=== PATIENT | female | born 2000 | race Caucasian/White ===

== ENCOUNTER 2019-11-20 23:03 | Emergency (ER) | payer OTHER ==
[2019-11-20] MEDS ORDERED: LORAZEPAM INJ 2 MG/1 ML VIAL IV ONE (23:15)
[2019-11-20] MEDS: NORMAL SALINE 1000 ML 1,000 ML IV PRN (23:29)
[2019-11-20 23:32] LABS: ABSOLUTE EOSINOPHILS # (AUTO) 0.3 10^3/uL (0.0-0.6); ABSOLUTE LYMPHOCYTES (AUTO) 4.1 10^3/uL (0.5-4.7); ABSOLUTE MONOCYTES (AUTO) 0.9 10^3/uL (0.1-1.4); ABSOLUTE NEUT (AUTO) 5.9 10^3/uL (1.7-8.2); BASOPHILS % (AUTO) 0.3 % (0-2); EOSINOPHILS % (AUTO) 2.7 % (0-6); HEMATOCRIT 46.8 % (36.0-47.0); HEMOGLOBIN 15.6 g/dL (12.0-15.5); LYMPHOCYTES % (AUTO) 36.2 % (13-45); MEAN CORPUSCULAR HEMOGLOBIN 30.7 pg (27.0-33.4); MEAN CORPUSCULAR HGB CONC 33.4 g/dL (32.0-36.0); MEAN CORPUSCULAR VOLUME 92 fl (80-97); MONOCYTES % (AUTO) 8.4 % (3-13); PLATELET COUNT 339 10^3/uL (150-450); RED BLOOD COUNT 5.09 10^6/uL (3.72-5.28); RED CELL DISTRIBUTION WIDTH 13.4 % (11.5-14.0); SEGMENTED NEUTROPHILS % (AUTO) 52.4 % (42-78); TOTAL CELLS COUNTED % (AUTO) 100 %; WHITE BLOOD COUNT 11.2 10^3/uL (4.0-10.5)
[2019-11-20 23:42] LABS: ACETAMINOPHEN < 10 ug/mL (10-30); ALBUMIN 4.8 g/dL (3.5-5.0); ALCOHOL 137 mg/dL (NONE DETECTED); ALKALINE PHOSPHATASE 66 U/L (38-126); ANION GAP 13 (5-19); ASPARTATE AMINO TRANSFERASE 34 U/L (14-36); BILIRUBIN,TOTAL 0.5 mg/dL (0.2-1.3); BLOOD UREA NITROGEN 11 mg/dL (7-20); CARBON DIOXIDE 21 mmol/L (22-30); CHLORIDE 107 mmol/L (98-107); GLUCOSE 115 mg/dL (75-110); POTASSIUM 3.3 mmol/L (3.6-5.0); SALICYLATE < 1.0 mg/dL (2.0-20.0); TOTAL PROTEIN 7.7 g/dL (6.3-8.2)
[2019-11-21] MEDS ORDERED: DIAZEPAM INJ 10 MG/2 ML DISP.SYRIN IV ONE ×5 (00:20→01:57)
--- NOTE | 2019-11-21 00:21 | ER Document Report ---
Entered by RIZWAN SNOW SCRIBE 11/20/19 6258 Acting as scribe for:JOSE ALBERTO HERNANDEZ IV, MD ED General - General Chief Complaint: Overdose Stated Complaint: ALTERED MENTAL STATUS Time Seen by Provider: 11/20/19 23:10 Mode of Arrival: Medic Information source: Emergency Med Personnel Notes: This 20 year old female patient brought in by EMS presents to the ED today with complaints of possible overdose and altered mental status that occurred just prior to arrival. Per ED nurse, the patient told EMS that she took x3 Benadryl tablets; however, friends at the scene report that she possibly took x12. HPI is limited and PMH/ROS are unobtainable due to the patient's medical condition. Past Medical History - General Cannot obtain history due to: Altered mental status - Social History Smoking Status: Unknown if Ever Smoked Family History: Reviewed & Not Pertinent Review of Systems - Review of Systems -: Yes ROS unobtainable due to patient's medical condition Physical Exam - Vital signs Vitals: Temp 98.2 F 11/20/19 23:03 - General General appearance: Other - Awake In distress: None - HEENT Head: Normocephalic, Atraumatic Eyes: Normal Pupils: PERRL - Respiratory Respiratory status: No respiratory distress Chest status: Nontender Breath sounds: Normal Chest palpation: Normal - Cardiovascular Rhythm: Regular, Tachycardia Heart sounds: Normal auscultation Murmur: No Friction rub: No Gallop: None auscultated - Abdominal Inspection: Normal Distension: No distension Bowel sounds: Hypoactive Tenderness: Nontender - Abdomen soft Organomegaly: No organomegaly - Back Back: Normal, Nontender - Extremities General upper extremity: Normal inspection General lower extremity: Normal inspection - Neurological Neuro grossly intact: Yes - Psychological Associated symptoms: Other - Laughs inappropriately, nonsensical speech - Skin Skin Temperature: Warm Skin Moisture: Dry Skin Color: Normal Course - Vital Signs Vital signs: Temp Pulse Resp BP Pulse Ox 98.2 F 29 H 139/92 H 95 11/20/19 23:03 11/21/19 05:30 11/21/19 05:30 11/21/19 05:29 - Laboratory Result Diagrams: 11/20/19 23:11 11/20/19 23:11 Laboratory results interpreted by me: 11/20/19 11/20/19 11/21/19 23:11 23:11 04:02 WBC 11.2 H Hgb 15.6 H Potassium 3.3 L Carbon Dioxide 21 L Glucose 115 H Salicylates < 1.0 L Acetaminophen < 10 L < 10 L Discharge - Discharge Clinical Impression: Involuntary commitment Acute alcohol intoxication Qualifiers: Complication of substance-induced condition: with unspecified complication Qualified Code(s): F10.929 - Alcohol use, unspecified with intoxication, unspecified Intentional diphenhydramine overdose Qualifiers: Encounter type: initial encounter Qualified Code(s): T45.0X2A - Poisoning by antiallergic and antiemetic drugs, intentional self-harm, initial encounter Condition: Stable Disposition: OTHER I personally performed the services described in the documentation, reviewed and edited the documentation which was dictated to the scribe in my presence, and it accurately records my words and actions.
[2019-11-21] MEDS: NORMAL SALINE 1000 ML 1,000 ML IV PRN (00:28)
[2019-11-21 01:45] LABS: APPEARANCE,URINE CLEAR; BILIRUBIN,URINE NEGATIVE (NEGATIVE); COLOR,URINE STRAW; GLUCOSE, URINE NEGATIVE (NEGATIVE); KETONES,URINE NEGATIVE (NEGATIVE); LEUKOCYTE ESTERASE,URINE NEGATIVE (NEGATIVE); NITRITE,URINE NEGATIVE (NEGATIVE); PROTEIN,URINE NEGATIVE (NEGATIVE); URINE SPECIFIC GRAVITY 1.008; UROBILINOGEN,URINE NEGATIVE mg/dL (<2.0)
[2019-11-21 02:02] LABS: URINE AMPHETAMINES SCREEN NEGATIVE; URINE BARBITURATES SCREEN NEGATIVE; URINE BENZODIAZEPINES SCREEN NEGATIVE; URINE COCAINE SCREEN NEGATIVE; URINE MARIJUANA (THC) SCREEN NEGATIVE; URINE METHADONE SCREEN NEGATIVE; URINE PHENCYCLIDINE SCREEN NEGATIVE
[2019-11-21] MEDS ORDERED: MIDAZOLAM HCL 50 MG/100 ML RTUINJ IV PRN (02:02)
--- NOTE | 2019-11-21 08:17 | EKG REPORT ---
SEVERITY:- ABNORMAL ECG - SINUS TACHYCARDIA NONSPECIFIC ST-T CHANGES DIFFUSE : Confirmed by: Felipe Allison MD 21-Nov-2019 08:16:03
--- NOTE | 2019-11-21 08:40 | ER Document Report ---
Doctor's Note Notes: 11/21/19 08:40 Received basic report on the patient. I went to evaluate the patient. When I walk into the room her heart rate elevates from 10 5-1 36. Patient pupils are still dilated and minimally reactive at 7 mm. She is somewhat agitated and hyper. Patient is responding to questions. She states she has no recollection of taking Benadryl. Denies drug or alcohol use. Denies prior suicide attempt. Patient is able to give me the day of the week and the year but is not able to give me the date or the month. She thinks it is October 17. Patient is apparently active duty. Awaiting psychiatric team to discuss patient but she may need transfer to [facility] for further medical care 11/21/19 10:49 I spoke with [facility] transfer center about the patient. She is still disoriented still tachycardic dry mouth anticholinergic symptoms. 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 Reviewed by emergency department attending physician. IA 144. QT 368 11/21/19 11:[address] [facility]. We discussed the patient's course. She is off of the Versed drip as of 7 AM. She believes patient should be brought over to their stepdown unit, transfer center will call me back with the stepdown providers to discuss patient 11/21/19 11:27 spoke with the hospitalist at [facility]. He is not aware of the policy for accepting a transfer directly to their floor from an outside emergency department believes that it may need to go through their emergency department a lthough I have already spoken with them and they thought patient should go to [facility]. He will call their ER and then call me back regarding how to transfer the patient over 11/21/19 11:[address] Yadira Patricio, Hospitalist [facility]. He believes the patient will be transferred ER to ER and I should be receiving a call from the ER at [facility] about transferring the patient ACLS 11/21/19 11:39 patient has been accepted by DAVID Bhakta MD at [facility]. Please send patient ACLS transport. They request we arrange transport
--- NOTE | 2019-11-21 11:10 | EKG REPORT ---
SEVERITY:- BORDERLINE ECG - SINUS RHYTHM BORDERLINE T ABNORMALITIES, DIFFUSE LEADS : Confirmed by: Felipe Allison MD 21-Nov-2019 11:09:56
--- NOTE | 2019-11-21 14:00 | PSYCHOLOGICAL NOTE ---
Psych Note - Psych Note Date seen by psych provider: 11/21/19 Psych Note: Patient not seen. She has been accepted to [facility] as a medical transfer. Patient is active duty. [facility] has behavioral health unit and can be evaluated in their facility.
[2019-11-21 14:01] VITALS: BP 126/75
== END 2019-11-21 13:36 ==
LOC: EDBD → ER 23:03
DX: Z04.6 Encounter for general psychiatric examination, requested by authority (principal); T45.0X2A Poisoning by antiallergic and antiemetic drugs, intentional self-harm, initial encounter; R00.0 Tachycardia, unspecified; R68.2 Dry mouth, unspecified; F10.129 Alcohol abuse with intoxication, unspecified
CPT/HCPCS: 93005 ×2; 96376; 99285; 96361; 96375; 96365; 96366; 36415; 80307 ×4; 83735; 84703; 85025; 80053; 81001; 93010 ×2; J3360; J2060; J2250; J7030 ×2